=== PATIENT | female | born 1980 | race Two or more races ===

== ENCOUNTER 2019-09-05 08:02 | Emergency (ER) | payer MEDICAID ==
[~2019-09-05] VITALS: Ht 157.5 cm; Wt 90.3 kg
[2019-09-05 09:07] LABS: Basophils # (auto) 0 10 ^3/uL (0-0.2); Basophils % (auto) 0.6 % (0.0-2.0); Eosinophils # (auto) 0 10 ^3/uL (0-0.8); Eosinophils % (auto) 1.1 % (0.0-7.0); Hemoglobin 13.6 g/dL (12.2-16.2); Lymphocytes % (auto) 24.2 % (10.0-50.0); Mean Corpuscular Hemoglobin 28.6 pg (28.0-32.0); Mean Corpuscular Hgb Conc. 33.3 g/dL (32.0-36.0); Monocytes # (auto) 0.3 10 ^3/uL (0-1.3); Monocytes % (auto) 7.7 % (0.0-12.0); Neutrophils # (auto) 2.6 10 ^3/uL (1.6-8.6); Neutrophils % (auto) 66.4 % (37.0-80.0); Nucleated Red Blood Cells % 0.4 %; Platelet Count (auto) 270 10^3/uL (140-450); Red Blood Cells 4.77 10^6/uL (4.0-5.20); Red Cell Distribution Width 14.4 % (11.8-14.3); White Blood Cell 3.9 10^3/uL (4.4-10.8)
[2019-09-05 09:23] LABS: Albumin 3.2 g/dL (3.4-5.0); Potassium 3.6 mmol/L (3.5-5.1)
[2019-09-05 09:25] LABS: BUN/Creatinine Ratio 18.1
[2019-09-05 09:28] LABS: Bilirubin, Total 0.5 mg/dL (0.2-1.0); Total Protein 7.5 g/dL (6.4-8.2)
[2019-09-05 11:15] VITALS: BP 132/87
[2019-09-05] MEDS ORDERED: ZINC SULFATE 220mg CAP or TAB PO ONE (11:30)
[2019-09-05] MEDS ORDERED: ASCORBIC ACID 500 MG TAB PO ONE (11:30)
[2019-09-05] MEDS ORDERED: AZITHROMYCIN 250 MG TAB PO ONE (11:30)
[2019-09-05] MEDS ORDERED: DexAMETHasone 4 MG TAB PO ONE (11:30)
== END 2019-09-05 11:52 | disposition home or self-care (01) ==
LOC: ER 08:02
DX: J15.9 Unspecified bacterial pneumonia (principal); B34.9 Viral infection, unspecified; E46 Unspecified protein-calorie malnutrition; R94.5 Abnormal results of liver function studies; Z68.36 Body mass index [BMI] 36.0-36.9, adult; Z90.49 Acquired absence of other specified parts of digestive tract; Z98.51 Tubal ligation status
CPT/HCPCS: 36415; 71045; 80053; 82728; 85025; 99284; J8540

== ENCOUNTER 2022-02-27 10:08 | Emergency (ER) | payer MEDICAID ==
[~2022-02-27] VITALS: Ht 157.5 cm; Wt 90.8 kg
[2022-02-27] MEDS ORDERED: BACL10TA PO (15:51)
[2022-02-27] MEDS ORDERED: KETOROLAC TROMETH 30 MG/ML 1ML VIAL IM ONE ×2 (16:00)
[2022-02-27 16:07] VITALS: BP 144/83
== END 2022-02-27 16:08 | disposition home or self-care (01) ==
LOC: ER 10:08
DX: G44.209 Tension-type headache, unspecified, not intractable (principal); Z90.49 Acquired absence of other specified parts of digestive tract; Z98.890 Other specified postprocedural states